=== PATIENT | female | born 2000 | race Caucasian/White ===

== ENCOUNTER 2022-08-30 12:18 | Outpatient (CLI) | payer BC, SELFPAY ==
--- NOTE | ~2022-08-30 | US_ITS ---
EXAMINATION: US FNA w image guidance DATE: 08/30/2022 13:39 INDICATION: Right-sided thyroid nodule TECHNIQUE: A time-out was performed to verify the patient's name, date of , and procedure to be performed . The procedure and its benefits and risks were discussed with the patient. Risks specifically discus sed included bleeding and infection. The patient understood the risks and agreed to proceed. The neck was prepped and draped in the usual sterile manner. 3 mL 1% lidocaine was used for local anesthesia . 6 passes were made with a 25G needle into the lesion. Appropriate needle location was documented with continuous sonographic guidance. A sterile bandage was applied. There were no immediate compli cations. FINDINGS: Grayscale ultrasound images demonstrate biopsy needles advanced into a 3.2 cm solid isoechoic TI RADS 3 nodule in the right thyroid lobe. IMPRESSION: 1. Successful ultrasound-guided fine needle aspiration of a 3.2 cm TI RADS 3 right thyroid nodule. Reviewed, dictated and finalized at location A. IMPRESSION: 1. Successful ultrasound-guided fine needle aspiration of a 3.2 cm TI RADS 3 r ight thyroid nodule.
== END 2022-08-30 12:19 | disposition home or self-care (01) ==
LOC: ANHIMG 12:25
PROVIDERS: PCP Family Medicine; Visit Provider Obstetrics & Gynecology
DX: E04.1 Nontoxic single thyroid nodule (principal)
CPT/HCPCS: 10005; 88173; 88305

== ENCOUNTER 2023-04-23 12:37 | Outpatient (CLI) | payer BC, SELFPAY ==
[2023-04-23 19:08] LABS: Free T4 Free Thyroxine 1.44 ng/mL (0.78-2.19)
[2023-04-28 06:30] LABS: Triiodothyronine T3 Free 2.9 pg/mL (2.3-4.2)
== END 2023-04-23 12:38 | disposition home or self-care (01) ==
LOC: ANHBWCLAB 12:38
PROVIDERS: PCP Family Medicine; Visit Provider Family Medicine
DX: E03.9 Hypothyroidism, unspecified (principal)
CPT/HCPCS: 36415; 84439; 84443; 84481

== ENCOUNTER 2023-06-19 12:21 | Outpatient (CLI) | payer BC, SELFPAY ==
[2023-06-19 18:13] LABS: Hematocrit 39.4 % (37.0-47.0); Hemoglobin 12.9 g/dL (12.0-15.0); Mean Corpuscular HGB Conc 32.7 g/dl (32-36); Mean Corpuscular Hemoglobin 29.6 pg (26-34); Mean Corpuscular Volume 90.4 fl (80-100); Mean Platelet Volume 10.7 fl (7.4-10.4); Platelet Count Result 258 k/mm3 (150-375); Red Blood Count 4.36 M/mm3 (4.2-5.4); Red Cell Distribution Width 12.6 % (11.5-14.5); White Blood Count 4.6 K/mm3 (4.5-10.0)
[2023-06-19 18:36] LABS: Anion Gap 9 mmol/L (8-16); Blood Urea Nitrogen 12 mg/dL (7-17); Calcium 9.1 mg/dL (8.4-10.2); Carbon Dioxide 28 mmol/L (22-30); Chloride 104 mmol/L (98-107); Estimated Glomerular Filt Rate > 60; Glucose 93 mg/dL (65-110); Potassium 4.3 mmol/L (3.4-5.0); Sodium 141 mmol/L (137-145)
[2023-06-19 18:43] LABS: Iron 65 ug/dL (37-170)
[2023-06-19 18:52] LABS: Percent Iron Saturation 19 % (20-50)
[2023-06-19 18:58] LABS: Vitamin D 25 Hydroxy 45.4 ng/mL
== END 2023-06-19 12:22 | disposition home or self-care (01) ==
PROVIDERS: PCP Family Medicine; Visit Provider Nurse Practitioner Adult Health
DX: R53.83 Other fatigue (principal)
CPT/HCPCS: 36415; 80048; 82306; 82607; 82728; 83540; 83550; 84443; 85027